=== PATIENT | male | born 1960 | race Caucasian/White ===

== ENCOUNTER 2019-04-22 08:15 | Emergency (ER) | payer MEDICAID ==
[~2019-04-22] VITALS: Ht 177.8 cm; Wt 100.0 kg
[2019-04-22] MEDS ORDERED: moxifloxacin 0.5% ophthalmic drops 3ml RIGHTEYE STA (08:43)
[2019-04-22] MEDS ORDERED: proparacaine 0.5% ophthalmic drops 15ml RIGHTEYE ONE (08:45)
[2019-04-22] MEDS ORDERED: ERYT1OIN6 RIGHTEYE (09:57)
[2019-04-22] MEDS ORDERED: SODI3.5O6 OP (09:57)
[2019-04-22] MEDS ORDERED: HYDR-3965 PO (10:01)
[2019-04-22 10:07] VITALS: BP 134/84
== END 2019-04-22 10:09 | disposition home or self-care (01) ==
LOC: ER 08:17
DX: H16.001 Unspecified corneal ulcer, right eye (principal)
CPT/HCPCS: 99283

== ENCOUNTER 2020-02-20 03:59 | Inpatient (IN) | payer SELFPAY, OTHER ==
[~2020-02-20] VITALS: Ht 177.8 cm; Wt 110.0 kg
[~2020-02-20 03:59] MED LIST: SODI3.5O6 OP
[2020-02-20 04:56] LABS: BASOPHILS # (AUTO) 0.1 X10'3 (0-0.2); BASOPHILS % (AUTO) 0.7 % (0-1); EOSINOPHILS % (AUTO) 0.1 % (0-6); HEMATOCRIT 51.7 % (42.0-52.0); HEMOGLOBIN 17.9 g/dl (14.0-17.9); LYMPHOCYTES % (AUTO) 12.6 % (21-51); MEAN CORPUSCULAR HEMOGLOBIN 36.1 PG (27.0-31.0); MEAN CORPUSCULAR HGB CONC 34.6 g/dL (33.0-36.5); MEAN CORPUSCULAR VOLUME 104.4 FL (78-98); MEAN PLATELET VOLUME 8.9 FL (7.4-10.4); MONOCYTES # (AUTO) 0.8 X10'3 (0-0.9); MONOCYTES % (AUTO) 9.8 % (2-12); NEUTROPHILS # (AUTO) 6.3 X10'3 (1.8-7.7); NEUTROPHILS % (AUTO) 76.8 % (42-75); PLATELET COUNT 151 X10'3 (140-440); RED BLOOD COUNT 4.95 X10'6 (4.70-6.10); RED CELL DISTRIBUTION WIDTH 15.4 % (11.5-14.5); WHITE BLOOD COUNT 8.2 X10'3 (4.5-11.0)
[2020-02-20 05:17] LABS: ALANINE AMINOTRANSFERASE 74 U/L (12-78); ALBUMIN 4.3 G/DL (3.4-5.0); ALBUMIN/GLOBULIN RATIO 0.9 (1.1-1.5); ALKALINE PHOSPHATASE 66 IU/L (46-116); ANION GAP 16 (8-16); ASPARTATE AMINO TRANSFERASE 81 U/L (10-37); BILIRUBIN,TOTAL 1.3 MG/DL (0.1-1.0); BLOOD UREA NITROGEN 21 MG/DL (7-18); BUN/CREATININE RATIO 17.2 (5.4-32.0); CHLORIDE 97 MMOL/L (99-107); CREATININE 1.22 MG/DL (0.60-1.10); GLUCOSE 167 MG/DL (70-104); SODIUM 132 MMOL/L (135-145); TOTAL CARBON DIOXIDE 18.7 MMOL/L (24-32); TOTAL PROTEIN 8.9 G/DL (6.4-8.2); eGFR 61 ML/MIN
[2020-02-20 05:19] LABS: CALCIUM 14.8 MG/DL (8.5-10.1)
[2020-02-20] MEDS ORDERED: ondansetron/PF 4mg/2ml inj IV ONE (06:45)
[2020-02-20] MEDS ORDERED: pantoprazole 40 MG vial IV ONE (06:45)
[2020-02-20] MEDS ORDERED: normal saline 1000ML IV soln IVB ONE ×2 (06:45)
[2020-02-20] MEDS ORDERED: morphine 2 MG/ML inj. syringe IV PRN ×2 (07:25)
[2020-02-20] MEDS ORDERED: HYDROcodone/acetaminophen 5mg/325mg tablet PO PRN (07:25)
[2020-02-20] MEDS ORDERED: HYDROcodone/acetaminophen 10/325mg tab PO PRN (07:25)
[2020-02-20] MEDS ORDERED: ondansetron/PF 4mg/2ml inj IV PRN (07:25)
[2020-02-20] MEDS ORDERED: acetaminophen 325mg tablet PO PRN ×2 (07:25)
[2020-02-20] MEDS ORDERED: magnesium hydroxide 30ml (MOM) UD suspension PO PRN (07:25)
[2020-02-20] MEDS ORDERED: mag hydrox/Alum hydrox/simeth 30ml oral suspension PO PRN (07:25)
[2020-02-20] MEDS ORDERED: pamidronate disodium inj 60 MG in normal saline 500ml IV soln 500 ML IV ONE (07:25)
[2020-02-20] MEDS ORDERED: NO HOME MEDS (07:40)
[2020-02-20] MEDS: enoxaparin 40mg/0.4ml syringe SUBCUT SCH (08:38)
[2020-02-20 08:39] LABS: LIPASE 122 U/L (73-393); MAGNESIUM 1.9 MG/DL (1.5-2.4); PHOSPHORUS 4.4 MG/DL (2.3-4.5)
[2020-02-20] MEDS: normal saline 1000ml 1,000 ML IV SCH ×2 (08:39→21:24)
--- NOTE | 2020-02-20 10:30 | NUR ---
RAO [phone] (ROOM MATE) PLEASE CONTACT WITH INFORMATION WHEN ABLE.
[2020-02-20 12:58] LABS: BASOPHILS % (AUTO) 0.4 % (0-1); EOSINOPHILS % (AUTO) 0.3 % (0-6); HEMATOCRIT 45.7 % (42.0-52.0); HEMOGLOBIN 15.5 g/dl (14.0-17.9); LYMPHOCYTES # (AUTO) 0.7 X10'3 (1.1-4.8); LYMPHOCYTES % (AUTO) 11.7 % (21-51); MEAN CORPUSCULAR HEMOGLOBIN 35.3 PG (27.0-31.0); MEAN CORPUSCULAR HGB CONC 33.8 g/dL (33.0-36.5); MEAN CORPUSCULAR VOLUME 104.3 FL (78-98); MEAN PLATELET VOLUME 8.9 FL (7.4-10.4); MONOCYTES # (AUTO) 0.8 X10'3 (0-0.9); MONOCYTES % (AUTO) 12.8 % (2-12); NEUTROPHILS # (AUTO) 4.5 X10'3 (1.8-7.7); NEUTROPHILS % (AUTO) 74.8 % (42-75); PLATELET COUNT 119 X10'3 (140-440); RED BLOOD COUNT 4.38 X10'6 (4.70-6.10); RED CELL DISTRIBUTION WIDTH 15.7 % (11.5-14.5)
[2020-02-20 13:07] LABS: ALANINE AMINOTRANSFERASE 59 U/L (12-78); ALBUMIN 3.5 G/DL (3.4-5.0); ALKALINE PHOSPHATASE 52 IU/L (46-116); ANION GAP 11 (8-16); ASPARTATE AMINO TRANSFERASE 49 U/L (10-37); BILIRUBIN,TOTAL 1.3 MG/DL (0.1-1.0); BLOOD UREA NITROGEN 20 MG/DL (7-18); BUN/CREATININE RATIO 19.4 (5.4-32.0); CALCIUM 11.4 MG/DL (8.5-10.1); CHLORIDE 106 MMOL/L (99-107); CREATININE 1.03 MG/DL (0.60-1.10); GLUCOSE 125 MG/DL (70-104); POTASSIUM 3.7 MMOL/L (3.5-5.1); SODIUM 140 MMOL/L (135-145); TOTAL CARBON DIOXIDE 23.1 MMOL/L (24-32); TOTAL PROTEIN 7.1 G/DL (6.4-8.2); eGFR 74 ML/MIN
--- NOTE | 2020-02-20 16:50 | NUR ---
TRIED TO CALL REPORT ON PT BUT NURSE ARMENDARIZ IS BUSY RGT NOW.
--- NOTE | 2020-02-20 16:59 | NUR ---
Tried to call ER to get report on patient, was put on hold for over ten minutes, got called away to a patient. ER sent patient up before I got report.
[2020-02-20 17:53] VITALS: BP 157/107
--- NOTE | 2020-02-20 18:00 | NUR ---
Patient in room PCU 3021. I have received report from Sheila ARNOLD and had the opportunity to ask questions and assume patient care.
--- NOTE | 2020-02-20 18:10 | NUR ---
Patient in room PCU 3021. I have received report from Luisana ARNOLD and had the opportunity to ask questions and assume patient care.
--- NOTE | 2020-02-20 18:46 | NUR ---
Problems reprioritized. Patient report given, questions answered & plan of care reviewed with CLAYTON Deutsch.
[2020-02-20] MEDS: cloNIDine 0.1 mg tablet PO SCH (21:24)
[2020-02-20 22:00] VITALS: BP 160/105
[2020-02-21 02:00] VITALS: BP 154/102
[2020-02-21 02:13] LABS: ALANINE AMINOTRANSFERASE 51 U/L (12-78); ALBUMIN 3.2 G/DL (3.4-5.0); ALKALINE PHOSPHATASE 48 IU/L (46-116); ANION GAP 11 (8-16); ASPARTATE AMINO TRANSFERASE 32 U/L (10-37); BILIRUBIN,TOTAL 1.2 MG/DL (0.1-1.0); BLOOD UREA NITROGEN 21 MG/DL (7-18); BUN/CREATININE RATIO 23.6 (5.4-32.0); CALCIUM 10.3 MG/DL (8.5-10.1); CHLORIDE 103 MMOL/L (99-107); CREATININE 0.89 MG/DL (0.60-1.10); GLUCOSE 113 MG/DL (70-104); POTASSIUM 3.3 MMOL/L (3.5-5.1); SODIUM 137 MMOL/L (135-145); TOTAL CARBON DIOXIDE 23.4 MMOL/L (24-32); TOTAL PROTEIN 6.5 G/DL (6.4-8.2); eGFR 88 ML/MIN
[2020-02-21 02:18] LABS: BASOPHILS % (AUTO) 0.6 % (0-1); EOSINOPHILS # (AUTO) 0.1 X10'3 (0-0.9); EOSINOPHILS % (AUTO) 1.6 % (0-6); HEMATOCRIT 42.2 % (42.0-52.0); HEMOGLOBIN 14.6 g/dl (14.0-17.9); LYMPHOCYTES # (AUTO) 0.6 X10'3 (1.1-4.8); MEAN CORPUSCULAR HEMOGLOBIN 36.2 PG (27.0-31.0); MEAN CORPUSCULAR HGB CONC 34.7 g/dL (33.0-36.5); MEAN CORPUSCULAR VOLUME 104.5 FL (78-98); MEAN PLATELET VOLUME 9.3 FL (7.4-10.4); MONOCYTES # (AUTO) 0.5 X10'3 (0-0.9); MONOCYTES % (AUTO) 10.6 % (2-12); NEUTROPHILS # (AUTO) 3.3 X10'3 (1.8-7.7); NEUTROPHILS % (AUTO) 73.2 % (42-75); PLATELET COUNT 106 X10'3 (140-440); RED BLOOD COUNT 4.04 X10'6 (4.70-6.10); RED CELL DISTRIBUTION WIDTH 15.3 % (11.5-14.5); WHITE BLOOD COUNT 4.5 X10'3 (4.5-11.0)
[2020-02-21] MEDS: normal saline 1000ml 1,000 ML IV SCH ×2 (03:25→13:25)
--- NOTE | 2020-02-21 06:22 | NUR ---
Problems reprioritized. Patient report given, questions answered & plan of care reviewed with Sheila ARNOLD.
--- NOTE | 2020-02-21 07:00 | NUR ---
Patient in room PCU 3021. I have received report from CLAYTON Deutsch and had the opportunity to ask questions and assume patient care.
[2020-02-21] MEDS ORDERED: thiamine inj. 100 MG in normal saline 100ml IV soln 100 ML IV ONE (07:20)
[2020-02-21] MEDS ORDERED: LORazepam 2 mg/ml vial IV PRN (07:20)
[2020-02-21] MEDS ORDERED: LORazepam 1 MG tablet PO PRN (07:20)
[2020-02-21] MEDS: folic acid 1mg/0.2ml inj IV SCH (08:00)
[2020-02-21] MEDS ORDERED: thiamine inj. 100 MG, MVI, adult No.4 with vit. K 10 ML in dextrose 5% water 500ml 500 ML IV SCH ×3 (08:00)
[2020-02-21 09:22] VITALS: BP 167/117
[2020-02-21] MEDS: cloNIDine 0.1 mg tablet PO SCH ×3 (09:24→21:06)
[2020-02-21] MEDS: enoxaparin 40mg/0.4ml syringe SUBCUT SCH (10:01)
[2020-02-21 11:00] VITALS: BP 174/102
[2020-02-21] MEDS: lisinopril 10 MG tablet PO SCH (14:45)
[2020-02-21 15:00] VITALS: BP 154/98
--- NOTE | 2020-02-21 15:54 | NUR ---
Patient has no IV, MD aware. Patient to D/C tomorrow per Rusu.
--- NOTE | 2020-02-21 18:11 | NUR ---
Problems reprioritized. Patient report given, questions answered & plan of care reviewed with La Nena ARNOLD.
--- NOTE | 2020-02-21 18:38 | NUR ---
Patient in room PCU 3021. I have received report from Sheila ARNOLD and had the opportunity to ask questions and assume patient care.
--- NOTE | 2020-02-21 18:59 | NUR ---
Problems reprioritized. Patient report given, questions answered & plan of care reviewed with CLAYTON Deutsch.
--- NOTE | 2020-02-21 23:44 | NUR ---
Patient in room PCU 3021. I have received report from LORELEI ARNOLD and had the opportunity to ask questions and assume patient care.
--- NOTE | 2020-02-21 23:45 | NUR ---
AGREE WITH FORMER BODY BUMPER.
[2020-02-22 06:49] LABS: BASOPHILS % (AUTO) 0.6 % (0-1); EOSINOPHILS # (AUTO) 0.1 X10'3 (0-0.9); EOSINOPHILS % (AUTO) 4.4 % (0-6); HEMATOCRIT 41.2 % (42.0-52.0); HEMOGLOBIN 14.2 g/dl (14.0-17.9); LYMPHOCYTES # (AUTO) 0.5 X10'3 (1.1-4.8); LYMPHOCYTES % (AUTO) 21.4 % (21-51); MEAN CORPUSCULAR HGB CONC 34.5 g/dL (33.0-36.5); MEAN CORPUSCULAR VOLUME 104.1 FL (78-98); MEAN PLATELET VOLUME 8.9 FL (7.4-10.4); MONOCYTES # (AUTO) 0.4 X10'3 (0-0.9); MONOCYTES % (AUTO) 14.7 % (2-12); NEUTROPHILS # (AUTO) 1.4 X10'3 (1.8-7.7); NEUTROPHILS % (AUTO) 58.9 % (42-75); PLATELET COUNT 86 X10'3 (140-440); RED BLOOD COUNT 3.95 X10'6 (4.70-6.10); RED CELL DISTRIBUTION WIDTH 15.3 % (11.5-14.5); WHITE BLOOD COUNT 2.4 X10'3 (4.5-11.0)
[2020-02-22 07:00] VITALS: BP 146/100
[2020-02-22 07:13] LABS: ALANINE AMINOTRANSFERASE 57 U/L (12-78); ALBUMIN 2.9 G/DL (3.4-5.0); ALBUMIN/GLOBULIN RATIO 0.9 (1.1-1.5); ALKALINE PHOSPHATASE 43 IU/L (46-116); ANION GAP 3 (8-16); ASPARTATE AMINO TRANSFERASE 61 U/L (10-37); BILIRUBIN,TOTAL 0.7 MG/DL (0.1-1.0); BLOOD UREA NITROGEN 14 MG/DL (7-18); BUN/CREATININE RATIO 17.1 (5.4-32.0); CALCIUM 9.8 MG/DL (8.5-10.1); CHLORIDE 106 MMOL/L (99-107); CREATININE 0.82 MG/DL (0.60-1.10); GLUCOSE 112 MG/DL (70-104); MAGNESIUM 1.9 MG/DL (1.5-2.4); PHOSPHORUS 2.5 MG/DL (2.3-4.5); SODIUM 137 MMOL/L (135-145); TOTAL CARBON DIOXIDE 28.4 MMOL/L (24-32); TOTAL PROTEIN 6.2 G/DL (6.4-8.2); eGFR > 90 ML/MIN
[2020-02-22 07:16] LABS: POTASSIUM 2.9 MMOL/L (3.5-5.1)
[2020-02-22 07:18] LABS: PLATELET ESTIMATE DECREASED; TOTAL CELLS COUNTED 100
[2020-02-22] MEDS ORDERED: multivitamins, therapeutics tablet PO SCH (08:00)
[2020-02-22] MEDS ORDERED: folic acid 1mg tablet PO SCH (08:00)
[2020-02-22] MEDS ORDERED: thiamine 100mg tablet PO SCH (08:00)
[2020-02-22] MEDS: folic acid 1mg/0.2ml inj IV SCH (08:00)
[2020-02-22] MEDS: cloNIDine 0.1 mg tablet PO SCH ×2 (08:49→12:31)
[2020-02-22] MEDS: enoxaparin 40mg/0.4ml syringe SUBCUT SCH (08:50)
[2020-02-22] MEDS: lisinopril 10 MG tablet PO SCH (08:50)
[2020-02-22] MEDS ORDERED: potassium CL 10mEq/100ml bag 100 ML IV PRN (09:10)
[2020-02-22] MEDS ORDERED: potassium Cl 20 mEq SR tablet PO PRN ×2 (09:10)
[2020-02-22] MEDS ORDERED: magnesium Cl slow-release 64mg tablet PO PRN (09:10)
[2020-02-22] MEDS ORDERED: magnesium 4gm in 100ml NS 100 ML IV PRN (09:10)
[2020-02-22 10:49] VITALS: BP 142/97
[2020-02-22] MEDS ORDERED: LISI10TA4 PO (11:12)
[2020-02-22] MEDS ORDERED: ONDA4TAB6 PO (11:12)
[2020-02-22] MEDS ORDERED: CLON0.1T2 PO (11:12)
--- NOTE | 2020-02-22 13:30 | NUR ---
Patient stable for discharge per md orders. No IV access to take out. linen attendant discontinued. N95 mask applied, patient ad urmila to wheelchair. All return precautions and discharge instructions gone over with patient in detail. Prescriptions sent to patient's primary pharmacy. Vital signs stable. Patient wheeled to the lobby with nursing staff to taxi cab. Taxi cab seen leaving the premises.
[2020-02-22] MEDS ORDERED: K and/or MAG REPLACEMENT MC SCH (20:00)
== END 2020-02-22 13:34 | disposition home or self-care (01) | DRG 683 ==
LOC: ER 04:00 → ED HOLD 07:24 → PCU 3S 16:57
PROVIDERS: ADMIT Internal Medicine; ATTEND Internal Medicine
DX: N17.9 Acute kidney failure, unspecified (principal); F10.239 Alcohol dependence with withdrawal, unspecified; E83.52 Hypercalcemia; K29.20 Alcoholic gastritis without bleeding; Z20.828 Contact with and (suspected) exposure to other viral communicable diseases; Z79.899 Other long term (current) drug therapy
CPT/HCPCS: 36415; 71045; 74176; 80053; 83605; 83690; 83735; 83880; 83970; 84100; 84443; 84484; 85007; 85025; 87040; 87081; 87635; 93005; 96374; 96375; 99285; C9113; G0378; J1650; J2405; J2430; J7030; J7040

== ENCOUNTER 2023-02-15 08:14 | Emergency (ER) | payer MEDICAID ==
[~2023-02-15] VITALS: Ht 177.8 cm; Wt 126.3 kg
[~2023-02-15 08:14] MED LIST changes: +CLON0.1T2 PO; +LISI10TA27 PO; +ONDA4TAB6 PO; -SODI3.5O6 OP
[2023-02-15 08:34] VITALS: BP 123/82; PULSE 76; RESP 18; TEMP 97.8; O2SAT 97
[2023-02-15] MEDS ORDERED: cyclobenzaprine 10mg tablet PO ONE ×2 (09:35→10:00)
[2023-02-15] MEDS ORDERED: ketorolac trometh. 30mg/ml inj. IM ONE (09:35)
[2023-02-15] MEDS ORDERED: methylPREDNISolone sod succ 125mg/2ml vial IV ONE (09:35)
[2023-02-15] MEDS ORDERED: PRED20TA PO (10:12)
[2023-02-15] MEDS ORDERED: METH-797 PO (10:12)
== END 2023-02-15 10:34 | disposition home or self-care (01) ==
LOC: ER 08:14
DX: S39.012A Strain of muscle, fascia and tendon of lower back, initial encounter (principal); G89.29 Other chronic pain; Z72.89 Other problems related to lifestyle; Z79.899 Other long term (current) drug therapy; X58.XXXA Exposure to other specified factors, initial encounter; Y93.89 Activity, other specified; Y92.89 Other specified places as the place of occurrence of the external cause; Y99.8 Other external cause status
CPT/HCPCS: 96372; 96374; 99284; J1885; J2930

== ENCOUNTER 2023-10-23 10:20 | Emergency (ER) | payer MEDICAID ==
[~2023-10-23] VITALS: Ht 177.8 cm; Wt 131.1 kg
[~2023-10-23 10:20] MED LIST changes: +METH-797 PO
[2023-10-23 10:27] VITALS: TEMP 98.8
[2023-10-23 11:14] LABS: BASOPHILS % (AUTO) 0.5 % (0-1); EOSINOPHILS # (AUTO) 0.2 X10'3 (0-0.9); EOSINOPHILS % (AUTO) 5.7 % (0-6); HEMATOCRIT 39.5 % (42.0-52.0); LYMPHOCYTES # (AUTO) 0.8 X10'3 (1.1-4.8); LYMPHOCYTES % (AUTO) 27.4 % (21-51); MEAN CORPUSCULAR HEMOGLOBIN 33.4 PG (27.0-31.0); MEAN CORPUSCULAR HGB CONC 32.8 g/dL (33.0-36.5); MEAN CORPUSCULAR VOLUME 101.6 FL (78-98); MEAN PLATELET VOLUME 8.9 FL (7.4-10.4); MONOCYTES # (AUTO) 0.3 X10'3 (0-0.9); MONOCYTES % (AUTO) 9.5 % (2-12); NEUTROPHILS # (AUTO) 1.7 X10'3 (1.8-7.7); NEUTROPHILS % (AUTO) 56.9 % (42-75); PLATELET COUNT 182 X10'3 (140-440); RED BLOOD COUNT 3.89 X10'6 (4.70-6.10); RED CELL DISTRIBUTION WIDTH 13.6 % (11.5-14.5); WHITE BLOOD COUNT 3.1 X10'3 (4.5-11.0)
[2023-10-23 11:31] LABS: ALBUMIN 2.9 G/DL (3.4-5.0); ANION GAP 11 (8-16); BLOOD UREA NITROGEN 10 MG/DL (7-18); BUN/CREATININE RATIO 10.9 (10.0-20.0); CALCIUM 8.3 MG/DL (8.5-10.1); CHLORIDE 108 MMOL/L (99-107); CREATININE 0.92 MG/DL (0.60-1.10); GLUCOSE 124 MG/DL (70-104); POTASSIUM 3.4 MMOL/L (3.5-5.1); SODIUM 142 MMOL/L (135-145); TOTAL CARBON DIOXIDE 23.5 MMOL/L (24-32); eCRCL 86 ML/MIN; eGFR 83 ML/MIN
[2023-10-23 11:34] LABS: PRO BRAIN NATRIURETIC PEPTIDE 119 PG/ML (0-125)
[2023-10-23 13:56] LABS: D-DIMER 2.28 MG/L FEU (0-0.50)
[2023-10-23] MEDS: potassium Cl 20 mEq SR tablet PO STA ×2 (13:58→15:44)
[2023-10-23] MEDS ORDERED: iohexol 350MG/ML 100ml bottle IV ONE (14:14)
[2023-10-23] MEDS ORDERED: FURO40TA4 PO (14:54)
[2023-10-23] MEDS ORDERED: POTA-207 PO (14:54)
[2023-10-23] MEDS ORDERED: PRED20TA PO (14:54)
[2023-10-23] MEDS: predniSONE 20 mg tablet PO ONE (15:45)
[2023-10-23 15:46] VITALS: BP 143/97; PULSE 63; RESP 16; O2SAT 96
== END 2023-10-23 16:02 | disposition home or self-care (01) ==
LOC: ER 10:21
DX: J40 Bronchitis, not specified as acute or chronic (principal); Z20.822 Contact with and (suspected) exposure to COVID-19; R60.0 Localized edema; G89.29 Other chronic pain; M54.9 Dorsalgia, unspecified; F10.90 Alcohol use, unspecified, uncomplicated; Z79.899 Other long term (current) drug therapy; Z79.52 Long term (current) use of systemic steroids
CPT/HCPCS: 36415; 71045; 71275; 80048; 83880; 84145; 84484; 85025; 85379; 87811; 93005; 93971; 99285; J7512; Q9967

== ENCOUNTER 2024-08-14 09:26 | Emergency (ER) | payer MEDICAID ==
[~2024-08-14] VITALS: Ht 177.8 cm; Wt 122.7 kg
[~2024-08-14 09:26] MED LIST changes: +FURO40TA4 PO
--- NOTE | 2024-08-14 10:13 | Physician Documentation ---
History of Present Illness ~ Chief Complaint: Hip pain Stated Complaint: R HIP PAIN/EDEMA Time Seen by MD: 09:35 Primary Medical Doctor: ALEXANDER BAUMAN Patient is seen today with complaints of bilateral hip pain worse on the right side. Patient states this has been going on for quite a few years but has been exacerbated over the last few months as he has been trying to help his father move out of his house patient denies having a primary care. Patient admits to significant alcohol consumption as well as Tylenol and ibuprofen use in excess of daily limits. Patient denies any chest pain or shortness of breath or abdominal pain but he does admit to some swelling in his bilateral extremities off and on that does improve with elevating his feet. Patient has no other concern or complaint at this time. Medication Reconciliation Allergies: Coded Allergies: No Known Allergies (Unverified , 04/22/19) Scheduled Clonidine HCl (Clonidine HCl), 0.2 MG PO TID Furosemide (Furosemide), 1 TAB PO DAILY Lisinopril (Lisinopril), 10 MG PO DAILY Methocarbamol (Methocarbamol), 1 TAB PO Q12H Scheduled PRN Ondansetron Hcl (Zofran), 4 MG PO Q6H PRN for nausea/vomiting Past Medical History Past Medical History: *ENT*, Chronic Back Pain Past Surgical History: no surgical history Alcohol Use: Heavy Drug Use: none Lives In: Home Occupation: employed Review of Systems Constitutional: Denies: chills, fever, weakness Eyes: Denies: pain, blurred vision ENT: Denies: ear pain, nose pain, throat pain, mouth pain Respiratory: Denies: cough, shortness of breath Cardiovascular: Denies: chest pain, palpitations Gastrointestinal: Denies: abdominal pain, nausea, vomiting Genitourinary: Denies: burning, dysuria Male Genitalia: Denies: penile discharge, testicular pain Neurological: Denies: headache, dizziness Musculoskeletal: Denies: pain, swelling Integumentary: Denies: rash, lesions Allergic/Immunologic: Denies: hives, itching Hematologic/Lymphatic: Denies: no symptoms reported Psychiatric: Denies: depression, anxiety Physical Exam Vital Signs: Temperature: 98.0, Heart Rate: 79, Respiratory Rate: 15, BP: 152/72, Pulse Oximetry: 97, Weight: 122.730 Oxygen Flow Rate: 0 Physical Exam General: Awake and Alert, no acute distress. HEENT: Conjunctiva pink, Sclera clear, Mucus Membranes moist. Neck: Supple without masses and tenderness. Resp: Unlabored. Lungs clear to auscultation bilaterally. Heart: Regular Rate and rhythm, normal S1 and S2 without murmur, rub or gallop. Abdomen: Soft and non tender no organomegaly Musculoskeletal: Patient does have tenderness to palpation in the area of the right greater trochanter as well as proximally along the gluteus medius. Patient on exam does have decreased range of motion of hips bilaterally mildly due to pain. Patient is neurovascularly intact distally. Motor function intact distally. Strength intact. Extremities: No cyanosis,clubbing, patient does have 1+ pitting edema of bilateral lower extremities. Patient is neurovascularly intact distally. Skin: Warm and Dry. Progress Results/Orders Results/Orders Orders - YANA QUAN PAC Hip Bilateral 3-4 Views (08/14/24 11:17) Completed Orders - YANA QUAN PAC Hip Bilateral 3-4 Views (08/14/24 11:17) Cbc/Diff (08/14/24 10:44) Ethanol (08/14/24 10:44) Electrocardiogram (08/14/24 10:44) Ketorolac Trometh 30mg/Ml Vial (Toradol (08/14/24 10:45) CMP (08/14/24 10:44) Medications Received in ER Medications (Trade) Dose Ordered Sig/Ahmet Route PRN Reason Start Time Stop Time Status Last Admin Dose Admin (Toradol inj. 30mg/ml) 30 mg ONCE ONCE IM 08/14/24 10:45 08/14/24 10:52 DC 08/14/24 11:34 30 MG Vital Signs 08/14/24 08/14/24 08/14/24 09:28 10:59 11:01 Temp 98.0 Pulse 79 85 Resp 15 16 16 B/P (MAP) 152/72 138/79 (98) Pulse Ox 97 92 O2 Flow Rate 0 0 Laboratory Tests Test 08/14/24 10:51 White Blood Count 5.5 Red Blood Count 3.68 L Hemoglobin 13.3 L Hematocrit 38.8 L Mean Corpuscular Volume 105.4 H Mean Corpuscular Hemoglobin 36.1 H Mean Corpuscular Hemoglobin Concent 34.3 Red Cell Distribution Width 15.5 H Platelet Count 156 Mean Platelet Volume 8.4 Neutrophils (%) (Auto) 65.8 Lymphocytes (%) (Auto) 21.4 Monocytes (%) (Auto) 8.9 Eosinophils (%) (Auto) 3.1 Basophils (%) (Auto) 0.8 Neutrophils # (Auto) 3.6 Lymphocytes # (Auto) 1.2 Monocytes # (Auto) 0.5 Eosinophils # (Auto) 0.2 Basophils # (Auto) 0.0 CBC Comment Sodium Level 140 Potassium Level 3.3 L Chloride Level 104 Carbon Dioxide Level 23.0 L Anion Gap 13 Blood Urea Nitrogen 10 Creatinine 0.89 Estimated GFR/1.73 m2 86 BUN/Creatinine Ratio 11.2 Glucose Level 141 H Calcium Level 8.3 L Total Bilirubin 0.4 Aspartate Amino Transf (AST/SGOT) 67 H Alanine Aminotransferase (ALT/SGPT) 70 Alkaline Phosphatase 62 Total Protein 6.3 L Albumin 2.9 L Globulin 3.4 Albumin/Globulin Ratio 0.9 L Chemistry Comments Ethyl Alcohol Level 142 H EKG/XRAY/CT/US/VASC/MRI Bone/Soft Tissue X-Ray (Ext.) : Additional Comment X-rays of hips bilaterally reviewed by myself today with show no sign of acute fracture, bones in anatomic alignment, no sign of osteolytic or blastic lesions. DIAGNOSTIC RADIOLOGY Patient: SANTOS RIVER Medical Record: [id number] [facility] : 1960, Age: 64 Sex: Male Location: ER Patient Status: REG ER Service Date/Time: 08/14/241116 Ordering Physician: YANA QUAN PAC Exam: HIP BILATERAL 3- 4 VIEWS CLINICAL INDICATION: bilateral hip pain TECHNIQUE: 1 radiographic views of the pelvis and 2 views of the bilateral hips were obtained. Comparison: None FINDINGS/IMPRESSION: There is no evidence of acute fracture or dislocation. The visualized joint space is well maintained. The alignment is anatomical. There is no radiopaque foreign body. Electronically Signed by:ALANNA SU MD Date & Time: 08/14/24 1133 Dictated by: ALANNA SU MD Dictation date and time: 08/14/24 1107 Primary Care Provider: NO PRIMARY CARE PROVIDER cc: YANA QUAN ~ Medical Decision Making Findings Patient is seen today with complaints of bilateral hip pain worse on the right side. Patient states this has been going on for quite a few years but has been exacerbated over the last few months as he has been trying to help his father move out of his house patient denies having a primary care. Patient admits to significant alcohol consumption as well as Tylenol and ibuprofen use in excess of daily limits. Patient denies any chest pain or shortness of breath or abdominal pain but he does admit to some swelling in his bilateral extremities off and on that does improve with elevating his feet. Patient has no other concern or complaint at this time. Patient was given a injection of Toradol 30 mg IM in the ED today. Patient was also given prescription of ibuprofen 800 mg one tab by mouth three to 4 times a day along with Tylenol 1000 mg by mouth three to 4 times a day. Patient will follow up with primary care in 2-5 days if no better as needed sooner for ref erral to orthopedics and/or physical therapy for further eval and treatment. Departure Disposition: HOME / SELF CARE / HOMELESS Impression: Primary Impression: Hip pain Qualified Codes: M25.551 - Pain in right hip; M25.552 - Pain in left hip Additional Impression: Arthritis Condition: Improved Discharge Instructions: Arthritis, Nonspecific Additional Instructions: Patient was given a injection of Toradol 30 mg IM in the ED today. Patient was also given prescription of ibuprofen 800 mg one tab by mouth three to 4 times a day along with Tylenol 1000 mg by mouth three to 4 times a day. Patient will follow up with primary care in 2-5 days if no better as needed sooner for referral to orthopedics and/or physical therapy for further eval and treatment. Referrals: NO PRIMARY CARE PROVIDER (PCP) Prescriptions Acetaminophen (Tylenol Extra Strength) 500 Mg Tablet 2 TAB PO Q6H PRN PRN for pain or fever for 7 Days, #56 TAB Prov: YANA QUAN 08/14/24 Ibuprofen (Ibuprofen) 800 Mg Tablet 1 TAB PO Q8H for pain for 10 Days, #30 TAB 0 Refills Prov: YANA QUAN 08/14/24 Signature Scribe Signature: No scribe Attestation: No scribe YANA QUAN August 14, 2024 10:12
[2024-08-14 11:01] LABS: BASOPHILS % (AUTO) 0.8 % (0-1); EOSINOPHILS # (AUTO) 0.2 X10'3 (0-0.9); EOSINOPHILS % (AUTO) 3.1 % (0-6); HEMATOCRIT 38.8 % (42.0-52.0); HEMOGLOBIN 13.3 g/dl (14.0-17.9); LYMPHOCYTES # (AUTO) 1.2 X10'3 (1.1-4.8); LYMPHOCYTES % (AUTO) 21.4 % (21-51); MEAN CORPUSCULAR HEMOGLOBIN 36.1 PG (27.0-31.0); MEAN CORPUSCULAR HGB CONC 34.3 g/dL (33.0-36.5); MEAN CORPUSCULAR VOLUME 105.4 FL (78-98); MEAN PLATELET VOLUME 8.4 FL (7.4-10.4); MONOCYTES # (AUTO) 0.5 X10'3 (0-0.9); MONOCYTES % (AUTO) 8.9 % (2-12); NEUTROPHILS # (AUTO) 3.6 X10'3 (1.8-7.7); NEUTROPHILS % (AUTO) 65.8 % (42-75); PLATELET COUNT 156 X10'3 (140-440); RED BLOOD COUNT 3.68 X10'6 (4.70-6.10); RED CELL DISTRIBUTION WIDTH 15.5 % (11.5-14.5); WHITE BLOOD COUNT 5.5 X10'3 (4.5-11.0)
--- NOTE | 2024-08-14 11:07 | ELECTROCARDIOGRAPH REPORT ---
[facility] Test Date: 2024-08-14 Test Time: 11:05:38 Pat Name: SANTOS RIVER Department: [facility]-ER Patient ID: [facility]-[id number] Room: Gender: M Performing Artist: : 1960 Requested By: YANA QUAN Order Number: [id number] Reading MD: Dr. Guzman Maldonado Measurements Intervals [place] Rate: 86 P: 63 TN: 206 QRS: -16 QRSD: 92 T: 49 QT: 382 QTc: 457 Interpretive Statements Sinus rhythm Borderline left axis deviation Baseline wander in lead(s) V3,V6 Electronically Signed On 08-16-2024 15:44:[address] Guzman Maldonado Please click the below link to view image of tracing.
[2024-08-14 11:26] LABS: ALANINE AMINOTRANSFERASE 70 U/L (12-78); ALBUMIN 2.9 G/DL (3.4-5.0); ALBUMIN/GLOBULIN RATIO 0.9 (1.1-1.5); ALKALINE PHOSPHATASE 62 IU/L (46-116); ANION GAP 13 (8-16); ASPARTATE AMINO TRANSFERASE 67 U/L (10-37); BILIRUBIN,TOTAL 0.4 MG/DL (0.1-1.0); BLOOD UREA NITROGEN 10 MG/DL (7-18); BUN/CREATININE RATIO 11.2 (10.0-20.0); CALCIUM 8.3 MG/DL (8.5-10.1); CHLORIDE 104 MMOL/L (99-107); CREATININE 0.89 MG/DL (0.60-1.10); ETHANOL 142 MG/DL (<10); GLUCOSE 141 MG/DL (70-104); POTASSIUM 3.3 MMOL/L (3.5-5.1); SODIUM 140 MMOL/L (135-145); TOTAL PROTEIN 6.3 G/DL (6.4-8.2); eCRCL 88 ML/MIN; eGFR 86 ML/MIN
[2024-08-14] MEDS: ketorolac trometh 30MG/ML vial 30 MG/ML VIAL IM ONE (11:34)
--- NOTE | 2024-08-14 11:35 | RADIOLOGY REPORT ---
CLINICAL INDICATION: bilateral hip pain TECHNIQUE: 1 radiographic views of the pelvis and 2 views of the bilateral hips were obtained. Comparison: None FINDINGS/IMPRESSION: There is no evidence of acute fracture or dislocation. The visualized joint space is well maintained. The alignment is anatomical. There is no radiopaque foreign body.
[2024-08-14] MEDS ORDERED: ACET-1025 PO (12:03)
[2024-08-14] MEDS ORDERED: IBUP-1986 PO (12:03)
[2024-08-14 12:10] VITALS: BP 100/64; PULSE 63; RESP 14; TEMP 98.1; O2SAT 94
== END 2024-08-14 12:13 | disposition home or self-care (01) ==
LOC: ER 09:26
DX: M13.852 Other specified arthritis, left hip (principal); M13.851 Other specified arthritis, right hip; M25.552 Pain in left hip; M25.551 Pain in right hip; G89.29 Other chronic pain; M54.9 Dorsalgia, unspecified; F10.90 Alcohol use, unspecified, uncomplicated; I49.8 Other specified cardiac arrhythmias; Y90.6 Blood alcohol level of 120-199 mg/100 ml
CPT/HCPCS: 36415; 73522; 80053; 80320; 85025; 93005; 96372; 99285; J1885

== ENCOUNTER 2024-12-17 07:35 | Emergency (ER) | payer MEDICAID ==
[~2024-12-17] VITALS: Ht 177.8 cm; Wt 112.3 kg
[~2024-12-17 07:35] MED LIST changes: +IBUP-1986 PO
[2024-12-17 07:54] VITALS: BP 161/101; PULSE 65; RESP 18; O2SAT 98
--- NOTE | 2024-12-17 09:09 | Physician Documentation ---
HPI ~ General Chief Complaint: Tooth Problem Stated Complaint: FACIAL SWELLING Time Seen by MD: 08:59 Primary Medical Doctor: ALEXANDER History of Present Illness HPI Comment 64-year-old male presents to the ED with a complaint of upper left tooth pain and swelling. States that he has developed swollen tissue over the last two days. Denies any fevers.. He states he thinks he has not abscess in the surrounding tissue. Denies any drainage Medication Reconciliation Allergies: Coded Allergies: No Known Allergies (Unverified , 04/22/19) Scheduled Clonidine HCl (Clonidine HCl), 0.2 MG PO TID Furosemide (Furosemide), 1 TAB PO DAILY Ibuprofen (Ibuprofen), 1 TAB PO Q8H Lisinopril (Lisinopril), 10 MG PO DAILY Methocarbamol (Methocarbamol), 1 TAB PO Q12H Scheduled PRN Ondansetron Hcl (Zofran), 4 MG PO Q6H PRN for nausea/vomiting Past Medical History Past Medical History: *ENT*, Chronic Back Pain Past Surgical History: no surgical history Alcohol Use: Heavy Drug Use: none Lives In: Home Occupation: employed Review of Systems All Other Systems at this time: Reviewed and Negative ROS As stated above in the HPI, otherwise all systems are reviewed and negative. Physical Exam Vital Signs: Temperature: 97.5, Source: Temporal, Heart Rate: 65, Respiratory Rate: 18, BP: 161/101, Pulse Oximetry: 98, Weight: 112.300 Oxygen Flow Rate: 0 Physical Exam General: Alert, no apparent distress. HEENT: PERRL, EOMI, no injection, moist mucous membranes. swelling superior to left incisor, feels fluctuant Psychiatric: Normal mood and affect. Skin: Normal color, warm and dry. No edema, no ecchymosis. Procedures I & D Procedure : Anesthesia: Lidocaine w/ Epi Blade Size: 11 Incision: pus drained Tolerated Procedure Well?: yes, no complications Procedure Note 0.5 cm incision vmade at abscess site. Progress Results/Orders Results/Orders Orders - MARINO JARAMILLO NP Laceration/I&D Tray Set Up (12/17/24 ) Completed Orders - MARINO JARAMILLO COMMUNITY SERVICE REPRESENTATIVE Lidocaine 1% W/Epi 1:100,000 (Xylocaine (12/17/24 09:05) Vital Signs 12/17/24 07:54 Temp 97.5 Pulse 65 Resp 18 B/P (MAP) 161/101 Pulse Ox 98 O2 Flow Rate 0 Medical Decision Making Findings Patient tolerated I and D well. Notable purulent discharge was evident post incision. We will place the patient on oral antibiotics Differential Dx:Considerations: Include: Alveolar fracture, Alveolar osteitis, ANUG, Facial Cellulitis, Periapical abscess, Peridontal abscess, Post-extraction bleeding, Pulpitis, Tooth avulsion, Tooth eruption, Tooth Fracture, Trigeminal neuralgia, Tooth subluxation, Other Departure Disposition: HOME / SELF CARE / HOMELESS Impression: Primary Impression: Dental caries Additional Impression: Dental abscess Condition: Stable Discharge Instructions: Dental Abscess Referrals: NO PRIMARY CARE PROVIDER (PCP) Prescriptions Clindamycin HCl (Cleocin HCl) 300 Mg Capsule 1 CAP PO Q12H for 7 Days, #14 CAP Prov: MARINO JARAMILLO NP 12/17/24 Education Educated: Patient Educated regarding: diagnosis Signature Scribe Signature: e Attestation: Scribed for Marino Jaramillo Language Assistant by Marino Vazquez NP . 12/17/24 09:08 MARINO JARAMILLO NP Dec 17, 2024 09:09
[2024-12-17] MEDS: LIDOcaine 1% W/epiNEPHrine 1:100,000 20ml vial SQ ONE (09:15)
[2024-12-17] MEDS ORDERED: CLIN300C3 PO (09:23)
[2024-12-17 09:24] VITALS: TEMP 97.5
== END 2024-12-17 09:30 | disposition home or self-care (01) ==
LOC: ER 07:36
DX: K04.7 Periapical abscess without sinus (principal); K02.9 Dental caries, unspecified; G89.29 Other chronic pain; F10.90 Alcohol use, unspecified, uncomplicated; Z79.899 Other long term (current) drug therapy; Y90.9 Presence of alcohol in blood, level not specified
CPT/HCPCS: 41800; 99284

== ENCOUNTER 2025-02-28 09:20 | Emergency (ER) | payer MEDICAID ==
[~2025-02-28] VITALS: Ht 170.2 cm; Wt 116.4 kg
[2025-02-28 09:29] VITALS: TEMP 97.6
--- NOTE | 2025-02-28 10:03 | RADIOLOGY REPORT ---
CLINICAL INDICATION: RIGHT HIP PAIN TECHNIQUE: 1 radiographic views of the pelvis and 2 views of the right hip were obtained. Comparison: DI HIP BILATERAL 3-4 VIEWS on DOS: 08/14/24 FINDINGS/IMPRESSION: There is no evidence of acute fracture or dislocation. 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
--- NOTE | 2025-02-28 10:28 | Physician Documentation ---
History of Present Illness ~ Chief Complaint: Hip pain Stated Complaint: HIP PAIN Time Seen by MD: 09:37 Primary Medical Doctor: NONE HPI 64-year-old male brought to the emergency department by EMS for evaluation of right hip pain. Patient reports mechanical fall three nights ago when he went outside to urinate. Difficulty getting back into the house. Since that incident and has had increased antalgic gait. There was no obvious shortening and/or external rotation. Patient reports longstanding history of right greater than left hip pain. Medication Reconciliation Allergies: Coded Allergies: No Known Allergies (Unverified , 02/28/25) Scheduled Clonidine HCl (Clonidine HCl), 0.2 MG PO TID Furosemide (Furosemide), 1 TAB PO DAILY Ibuprofen (Ibuprofen), 1 TAB PO Q8H Lisinopril (Lisinopril), 10 MG PO DAILY Methocarbamol (Methocarbamol), 1 TAB PO Q12H Scheduled PRN Ondansetron Hcl (Zofran), 4 MG PO Q6H PRN for nausea/vomiting Past Medical History Past Medical History: *ENT*, Chronic Back Pain Past Surgical History: no surgical history Alcohol Use: Heavy Drug Use: none Lives In: Home Occupation: employed Review of Systems All Other Systems at this time: Reviewed and Negative Musculoskeletal: Reports: joint pain, muscle pain Physical Exam Vital Signs: RN Vital Signs have been reviewed: Yes, Temperature: 97.6, Source: Oral, Heart Rate: 69, Respiratory Rate: 16, BP: 122/98, Pulse Oximetry: 95, Weight: 116.360 Oxygen Flow Rate: 0 General Appearance: alert, WD/WN, mild distress Head: normal inspection EENT: PERRL/EOMI Respiratory: lungs clear Cardiovascular: normal peripheral pulses Gastrointestinal: normal palpation Back: normal inspection Hip: limited ROM, external rotation, internal rotation, pain; No: shortening Legs: normal inspection Distal Function: no motor deficit, no sensory deficit Skin: normal color Neurologic: oriented x4, senior planning manager II-XII nml as tested Psychiatric: normal mood/affect Progress Results/Orders Results/Orders Orders - QUIN GUZMAN PAC Ct Lower Extremity (02/28/25 10:50) Mri Lower Extremity Right (02/28/25 17:00) Completed Orders - QUIN GUZMAN PAC Ct Lower Extremity (02/28/25 10:50) Mri Lower Extremity Right (02/28/25 17:00) Vital Signs 02/28/25 02/28/25 02/28/25 02/28/25 09:29 13:53 17:30 18:31 Temp 97.6 Pulse 69 78 86 66 Resp 16 16 16 16 B/P (MAP) 122/98 171/109 (129) 182/104 (130) 181/105 Pulse Ox 95 95 97 98 O2 Flow Rate 0 0 0 Medical Decision Making Additional information obtaine: old records Findings 64-year-old male brought to the emergency department for persistent antalgic gait status post mechanical fall. X-ray imaging obtained today in the emergency department without obvious fracture or dislocation, compared to films from August also without fracture dislocation. We will go ahead and obtain CT imaging to evaluate for occult fracture. No obvious occult fracture noted on CT imaging yet radiologist recommends MRI. MRI consistent with worsening avascular necrosis. Patient to be referred to orthopedist for definitive management. Restless while in the emergency department. Remains grossly neurologically intact. Safely discharged to home. Differential Dx:Considerations: Include: Avascular necrosis, Arthritis, Bursitis, Contusion, Dislocation, DJD, Fracture-femur, Fracture-hip Departure Disposition: HOME / SELF CARE / HOMELESS Impression: Primary Impression: Avascular necrosis of bone of right hip Condition: Improved Discharge Instructions: Arthritis, [id number], Hip Bursitis Additional Instructions: Today in the emergency department you had x-rays obtained, CT imaging and MRI obtain your right hip. Please contact [facility] for follow up with your right hip avascular necrosis requiring orthopedic evaluation. Continue with the Tylenol and the ibuprofen for discomfort. Thank you for visiting [facility]. Referrals: NO PRIMARY CARE PROVIDER (PCP) ORTHO DENAE FITZGERALD 1 week Please evaluate for right hip avascular necrosis. Thank you [facility] Emergency Department Education Educated: Patient Educated regarding: diagnosis, treatment, prognosis, need for follow up Signature Scribe Signature: . Attestation: . QUIN GUZMAN PAC Feb 28, 2025 10:28
--- NOTE | 2025-02-28 11:30 | RADIOLOGY REPORT ---
INDICATION: Antalgic gait with negative Xrays COMPARISON: None TECHNIQUE: CT of the right hip was performed without contrast. Volume transverse images were obtained and reconstructed in multiple planes using bone and soft tissue algorithms. Radiation Dose Information: CT Dose: CTDI volume is 1036 mGy. Dose-length product is 31.7 mGy*cm FINDINGS: The alignment is normal. The joint spaces are normal. No displaced fracture. Linear cortical irregularity and sclerosis at the proximal right femoral head. There is no joint effusion. The soft tissues are normal. IMPRESSION: Linear cortical irregularity and sclerosis at the proximal right femoral head. This is nonspecific and may be due to a stress fracture and/or avascular necrosis. MRI of the right hip without contrast is recommended for further evaluation. All CT scans at this medical facility are performed using dose modulation techniques as appropriate to a performed exam including the following: Automated exposure control was utilized; adjustment of the MA and/or KV according to patient size; and use of iterative reconstruction technique.
--- NOTE | 2025-02-28 17:56 | RADIOLOGY REPORT ---
[facility]: MR MRI LOWER EXTREMITY RIGHT TECHNIQUE: MRI of the right hip was performed without intravenous contrast. HISTORY: Suspect Occult Fx COMPARISON: CT CT LOWER EXTREMITY on DOS: 02/28/25 FINDINGS: Serpiginous rim of low T1 and T2 signal within both femoral heads, right more involved than left, with mild surrounding marrow edema. Slight cortical step deformity of the articular surface was better assessed on prior MRI. No acute appearing fracture or malalignment. No significant hip joint effusions. Moderate degenerative changes at the right hip with joint space loss, subchondral edema, and osteophyte formation. Visualized portions of the bony pelvis otherwise appear unremarkable. Soft tissues are unremarkable. IMPRESSION: Advanced avascular necrosis of the right hip worse than left hip with articular surface collapse on the right.
[2025-02-28 18:31] VITALS: BP 181/105; PULSE 66; RESP 16; O2SAT 98
== END 2025-02-28 18:44 | disposition home or self-care (01) ==
LOC: ER 09:20
DX: M87.88 Other osteonecrosis, other site (principal); M25.551 Pain in right hip; G89.29 Other chronic pain; Z79.899 Other long term (current) drug therapy; W18.39XA Other fall on same level, initial encounter; Y93.89 Activity, other specified; Y92.89 Other specified places as the place of occurrence of the external cause; Y99.8 Other external cause status
CPT/HCPCS: 73502; 73700; 73721; 99284